=== PATIENT | male | born 1965 | race Asian ===

== ENCOUNTER 2017-04-06 11:14 | Emergency (ER) | payer SELFPAY ==
[2017-04-06 18:01] LABS: HIV (1/2) Antibody/Antigen Non-Reactive (NonReactive); HIV 1/2 INDEX 0.08 S/CO (<1.00); Hep C IgG Ab Non-Reactive (NonReactive); Hep C Index 0.16 S/CO (0-0.79)
[2017-04-06 19:13] LABS: HBSAB Concentration 27.57 mIU/mL; Hep B Surf AB Reactive (NonReactive)
== END 2017-04-06 11:59 | disposition home or self-care (01) ==
LOC: MADERS 11:14
DX: Z20.89 Contact with and (suspected) exposure to other communicable diseases (principal); I10 Essential (primary) hypertension; E78.00 Pure hypercholesterolemia, unspecified; Z79.899 Other long term (current) drug therapy
CPT/HCPCS: 36415; 86706; 86803; 87389; 99283